=== PATIENT | female | born 1985 | race Caucasian/White ===

== ENCOUNTER 2019-05-15 09:53 | Emergency (ER) | payer BC, OTHER ==
[~2019-05-15] VITALS: Ht 170.2 cm; Wt 108.9 kg
[2019-05-15] MEDS ORDERED: TESSALON PERLE100 M1 PO (10:06)
[2019-05-15] MEDS ORDERED: MEDROLDOSEPACK PO (10:06)
[2019-05-15] MEDS ORDERED: ZOLOFT50 M1 PO (10:06)
[2019-05-15 10:12] LABS: URINE BILIRUBIN NEGATIVE (Negative); URINE BLOOD NEGATIVE (Negative); URINE CLARITY CLEAR; URINE COLOR YELLOW; URINE GLUCOSE-RANDOM NEGATIVE (Negative); URINE KETONES NEGATIVE (Negative); URINE LEUKOCYTES-REFLEX 1+ (Negative); URINE NITRITE-REFLEX NEGATIVE (Negative); URINE PROTEIN NEGATIVE (Negative); URINE SPECIFIC GRAVITY >= 1.030 (1.005-1.030); URINE UROBILINOGEN 0.2 E.U./dl (0.2-1.0)
[2019-05-15 10:16] LABS: HEMOGLOBIN 12.4 gm/dL (12.0-15.0); NUCLEATED RBCS 0 /100WBC; WBC 7.1 thou/uL (4.0-11.0)
[2019-05-15 10:18] LABS: ABSOLUTE BASOPHILS 0.1 thou/uL (0.0-0.2); ABSOLUTE EOSINOPHILS 0.2 thou/uL (0.0-0.7); ABSOLUTE LYMPHOCYTES 1.9 thou/uL (0.8-5.3); ABSOLUTE MONOCYTES 0.5 thou/uL (0.0-1.2); ABSOLUTE NEUTROPHILS 4.5 thou/uL (1.6-8.1); BASOPHILS 0.8 %; EOSINOPHILS 2.2 %; HEMATOCRIT 37.1 % (37.0-47.0); LYMPHOCYTES 26.6 %; MCHC 33.3 g/dL (28.0-37.0); MCV 81.1 fL (80.0-100.0); MONOCYTES 6.5 %; MPV 8.7 fl. (7.2-11.1); PLATELET COUNT* 248 thou/uL (150-400); POLYS 63.9 %; RBC 4.58 mil/uL (4.20-5.00); RDW-CV 14.2 % (10.5-14.5)
[2019-05-15 10:24] LABS: CALCIUM 8.7 mg/dL (8.5-10.1); CREATININE 0.9 mg/dL (0.6-1.3); POTASSIUM 3.6 mmol/L (3.5-5.1)
[2019-05-15 10:28] LABS: ALBUMIN 3.5 g/dL (3.4-5.0); TOTAL BILIRUBIN 0.2 mg/dL (<0.1-1.0); TOTAL PROTEIN 7.2 g/dL (6.4-8.2)
[2019-05-15 10:30] LABS: BACTERIA-REFLEX 1-9 Few /HPF (None Seen); CASTS None Seen /LPF (None Seen); CRYSTALS None Seen /LPF (None Seen); SQUAMOUS 0-3 Few /LPF (0-3); URINE RBC 0-2 Rare /HPF (0-2); URINE WBC-REFLEX 0-5 Rare /HPF (0-5)
[2019-05-15] MEDS ORDERED: ZANAFLEX2 M1 PO (13:03)
[2019-05-15 13:10] VITALS: BP 116/78
== END 2019-05-15 13:12 | disposition home or self-care (01) ==
LOC: M.ERS 09:53
PROVIDERS: Nurse Practitioner Psychiatric/Mental Health
DX: S39.011A Strain of muscle, fascia and tendon of abdomen, initial encounter (principal); J45.901 Unspecified asthma with (acute) exacerbation; Z88.2 Allergy status to sulfonamides; Z88.6 Allergy status to analgesic agent; X58.XXXA Exposure to other specified factors, initial encounter; Y93.89 Activity, other specified; Y92.89 Other specified places as the place of occurrence of the external cause; Y99.8 Other external cause status